=== PATIENT | female | born 1965 | race African-American/Black ===

== ENCOUNTER 2016-11-20 16:58 | Emergency (ER) | payer SELFPAY ==
[2016-11-20 16:58] VITALS: BP 152/78
--- NOTE | 2016-11-20 17:59 | EKG ---
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
[2016-11-20 18:26] LABS: BASO % 0 % (0-3); EOS # 0.1 x10^3/uL (0.0-0.7); EOS % 1 % (0-3); HEMATOCRIT 38.8 % (36.0-47.0); HEMOGLOBIN 12.7 g/dL (12.0-15.5); LYMPH % 53 % (24-48); MEAN CORPUSCULAR HEMOGLOBIN 28 pg (25-35); MEAN CORPUSCULAR HGB CONC 33 g/dL (31-37); MEAN CORPUSCULAR VOLUME 85 fL (79-100); MONO # 0.8 x10^3/uL (0.0-1.1); MONO % 10 % (0-9); NEUT # 2.7 x10^3uL (1.8-7.7); NEUT % 36 % (31-73); PLATELET COUNT 233 x10^3/uL (140-400); RED BLOOD COUNT 4.58 x10^6/uL (3.50-5.40); RED CELL DISTRIBUTION WIDTH 14.5 % (11.5-14.5); WHITE BLOOD COUNT 7.5 x10^3/uL (4.0-11.0)
[2016-11-20 18:38] LABS: ALBUMIN 3.6 g/dL (3.4-5.0); ALBUMIN/GLOBULIN RATIO 0.9 (1.0-1.7); CALCIUM 9.4 mg/dL (8.5-10.1); POTASSIUM 3.6 mmol/L (3.5-5.1); TOTAL BILIRUBIN 0.2 mg/dL (0.2-1.0); TOTAL PROTEIN 7.7 g/dL (6.4-8.2)
--- NOTE | 2016-11-21 03:41 | ED.ADGEN ---
Past History Past Medical History: Other Past Surgical History: Hysterectomy, Other Alcohol Use: None Drug Use: None Adult General Chief Complaint Chief Complaint Chest pain HPI HPI Patient is a 50-year-old -Macedonian female presents with intermittent chest pain 2 days. Patient states chest pain is left-sided and nonradiating. It is not worse with palpation, exertion, or movement. Pressure typically lasts 5-10 minutes and resolves without treatment. It is not associated with nausea vomiting or sweats. Patient denies abdominal pain, tenderness, leg pain or swelling. No history of DVT PE. No history of hypertension, dyslipidemia and diabetes or CAD. Patient states symptoms may be stress related due to increased amount of stress levels while at work and family related that home. No family history of early CAD under the age of 50. Patient is a nonsmoker. Review of Systems Review of Systems Review symptoms as per history of present illness. All other review symptoms are negative. Allergies Allergies Allergies Coded Allergies Type Severity Reaction Last Updated Verified naproxen Allergy Unknown GI UPSET 11/20/16 Yes Physical Exam Physical Exam Constitutional: Well developed, well nourished, no acute distress, non-toxic appearance. HENT: Normocephalic, atraumatic, bilateral external ears normal, oropharynx moist, no oral exudates, nose normal. Eyes: PERRLA, EOMI, conjunctiva normal. Neck: Normal range of motion, no tenderness. Cardiovascular:Heart rate regular rhythm, no murmur. Lungs & Thorax: Bilateral breath sounds clear to auscultation. Abdomen: Bowel sounds normal, soft, no tenderness. Skin: Warm, dry. Back: No tenderness. Extremities: No tenderness, no cyanosis, no clubbing, ROM intact, no edema. Neurologic: Alert and oriented X 3, normal motor function, normal sensory function, no focal deficits noted. Psychologic: Affect, anxious. Current Patient Data Vital Signs Vital Signs Date Time Temp Pulse Resp B/P (MAP) Pulse Ox O2 Delivery O2 Flow Rate FiO2 11/20/16 16:58 98.1 66 18 99 Room Air Lab Results Laboratory Tests Test 11/20/16 17:35 White Blood Count 7.5 x10^3/uL (4.0-11.0) Red Blood Count 4.58 x10^6/uL (3.50-5.40) Hemoglobin 12.7 g/dL (12.0-15.5) Hematocrit 38.8 % (36.0-47.0) Mean Corpuscular Volume 85 fL (79-100) Mean Corpuscular Hemoglobin 28 pg (25-35) Mean Corpuscular Hemoglobin Concent 33 g/dL (31-37) Red Cell Distribution Width 14.5 % (11.5-14.5) Platelet Count 233 x10^3/uL (140-400) Neutrophils (%) (Auto) 36 % (31-73) Lymphocytes (%) (Auto) 53 % (24-48) H Monocytes (%) (Auto) 10 % (0-9) H Eosinophils (%) (Auto) 1 % (0-3) Basophils (%) (Auto) 0 % (0-3) Neutrophils # (Auto) 2.7 x10^3uL (1.8-7.7) Lymphocytes # (Auto) 4.0 x10^3/uL (1.0-4.8) Monocytes # (Auto) 0.8 x10^3/uL (0.0-1.1) Eosinophils # (Auto) 0.1 x10^3/uL (0.0-0.7) Basophils # (Auto) 0.0 x10^3/uL (0.0-0.2) Sodium Level 141 mmol/L (136-145) Potassium Level 3.6 mmol/L (3.5-5.1) Chloride Level 105 mmol/L (98-107) Carbon Dioxide Level 30 mmol/L (21-32) Anion Gap 6 (6-14) Blood Urea Nitrogen 12 mg/dL (7-20) Creatinine 1.0 mg/dL (0.6-1.0) Estimated GFR (Cockcroft-Gault) 58.0 BUN/Creatinine Ratio 12 (6-20) Glucose Level 91 mg/dL (70-99) Calcium Level 9.4 mg/dL (8.5-10.1) Total Bilirubin 0.2 mg/dL (0.2-1.0) Aspartate Amino Transferase (AST) 17 U/L (15-37) Alanine Aminotransferase (ALT) 19 U/L (14-59) Alkaline Phosphatase 91 U/L (46-116) Troponin I Quantitative < 0.017 ng/mL (0-0.055) Total Protein 7.7 g/dL (6.4-8.2) Albumin 3.6 g/dL (3.4-5.0) Albumin/Globulin Ratio 0.9 (1.0-1.7) L EKG EKG [EKG: Normal sinus rhythm, no acute ST-T wave changes on ED review.] Radiology/Procedures Radiology/Procedures [Chest x-ray: No acute cardiopulmonary disease on ED review.] Course & Med Decision Making Course & Med Decision Making Pertinent Labs and Imaging studies reviewed. (See chart for details) [Patient with atypical nonreproducible chest pain. Chest x-ray, EKG, lab work are unremarkable despite ongoing symptoms for 2 days.. Patient relates symptoms to increased levels of strep work at home. Symptoms improved while in the ED. Recommend close PCP follow-up with further outpatient cardiac testing as needed. Return precautions reviewed. Patient voices understanding treatment discharge instructions prior to departure.. ] Final Impression Final Impression [1. Chest pain- non specific] Problems: Dragon Disclaimer Dragon Disclaimer This electronic medical record was generated, in whole or in part, using a voice recognition dictation system. MURIEL GRAVES DO Nov 21, 2016 03:41
--- NOTE | 2016-11-21 09:47 | RAD ---
Portable chest, 11/20/2016: History: Chest tightness The heart size and pulmonary vascularity are normal. No pulmonary infiltrates are seen. There is no evidence of pleural fluid. IMPRESSION: No acute cardiopulmonary abnormality is detected.
== END 2016-11-20 19:58 | disposition home or self-care (01) ==
LOC: ER 16:58
DX: R07.89 Other chest pain (principal); Z88.6 Allergy status to analgesic agent
CPT/HCPCS: 36415; 71010; 80053; 84484; 85027; 93005; 99285-25

== ENCOUNTER → 2017-04-24 | Outpatient (CLI) | payer OTHER ==
--- NOTE | 2017-04-24 09:41 | RAD ---
CT study of the abdomen and pelvis without contrast Clinical indications: Left flank pain for 3 months. Technique: Noncontrast helical CT scanning of the abdomen and pelvis was performed. Without contrast, the sensitivity to detect organ pathology and GI tract pathology is decreased. PQRS Compliance Statement: One or more of the following individualized dose reduction techniques were utilized for this examination: 1. Automated exposure control 2. Adjustment of the mA and/or kV according to patient size 3. Use of iterative reconstruction technique Comparison: None available. Findings: There is a 3.8 cm hypodense lesion of the dome of the posterior segment of the right lobe liver. This measures 32 Hounsfield units and therefore is consistent with a solid lesion. There is a 1.4 cm hypodense nodule of the anterior aspect of the lateral segment of the left lobe of the liver which demonstrates Hounsfield unit measurements of 10 consistent with a cyst. There is a 10 mm hypodense nodule within the posterior aspect the posterior segment of the right lobe of the liver which measures 5 Hounsfield units consistent with a small cyst. The spleen is not enlarged. The pancreas is homogeneous in appearance on this noncontrast study. The gallbladder is normal and no extra hepatic biliary ductal dilatation is seen. No adrenal mass is seen. No hydronephrosis or hydroureter or urinary tract stone is evident on either side. No renal mass is seen on either side on this noncontrast study. Urinary bladder wall is smooth. No focal aneurysmal dilatation of the abdominal aorta is seen. No enlarged abdominal or pelvic lymphadenopathy is seen. The uterus is surgically absent. No bowel obstruction is evident. The appendix is normal. No free air or free fluid or mesenteric inflammatory changes seen. No lung base consolidation is seen. No osteolytic process is seen. IMPRESSION: No acute amount in the abdomen or pelvis is evident. Specifically, no urinary tract stone or hydronephrosis or hydroureter is seen. There is mild fecal retention throughout the colon and rectosigmoid region. There is a 3.8 cm hypodense lesion of the right lobe of the liver. This is solid. This most likely represents a hemangioma if there is no history of primary malignancy or cirrhosis/hepatitis. This may be further evaluated with multiphase CT study of the abdomen with contrast.
== END | disposition home or self-care (01) ==
LOC: CT 07:44
PROVIDERS: ATTEND Family Medicine
DX: R10.9 Unspecified abdominal pain (principal); K76.9 Liver disease, unspecified; Z90.710 Acquired absence of both cervix and uterus
CPT/HCPCS: 74176

== ENCOUNTER → 2017-08-14 | Outpatient (CLI) | payer OTHER ==
--- NOTE | 2017-09-05 11:04 | RAD ---
DATE: 08/14/2017 EXAM: DIGITAL SCREEN BILAT W/CAD HISTORY: Routine screening COMPARISON: None available This study was interpreted with the benefit of Computerized Aided Detection (CAD). The breast parenchyma shows scattered fibroglandular densities. Breast parenchyma level B. FINDINGS: A breast biopsy marker is present medially in the right breast. A possible small nodule is noted posteriorly medially in the left breast on the cc view. No correlate is evident on the oblique view. This may be a summation shadow. No other suspicious breast densities are seen. A benign type calcification is present anteriorly in the left breast. No suspicious microcalcifications are seen. IMPRESSION: Possible left breast nodule as described above. Diagnostic left mammograms to include a spot compression cc view is suggested for further evaluation. BI-RADS CATEGORY: 0 INCOMPLETE: NEEDS ADDITIONAL IMAGING EVALUATION AND/OR PRIOR MAMMOGRAMS FOR COMPARISON. RECOMMENDED FOLLOW-UP: ADD ADDITIONAL IMAGING PQRS compliance statement: Patient information was entered into a reminder system with a target due date for the next mammogram. Mammography is a sensitive method for finding small breast cancers, but it does not detect them all and is not a substitute for careful clinical examination. A negative mammogram does not negate a clinically suspicious finding and should not result in delay in biopsying a clinically suspicious abnormality. "Our facility is accredited by the [employer] Mammography Program."
== END | disposition home or self-care (01) ==
LOC: MAMMO 07:35
PROVIDERS: ATTEND Nurse Practitioner Family
DX: Z12.31 Encounter for screening mammogram for malignant neoplasm of breast (principal)
CPT/HCPCS: 77067

== ENCOUNTER 2017-10-26 13:35 | Emergency (ER) | payer OTHER ==
[2017-10-26 13:42] VITALS: BP 128/81
--- NOTE | 2017-10-26 13:58 | EKG ---
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
[2017-10-26] MEDS ORDERED: KETOROLAC 60 MG/2 ML VIAL. IM ONE (14:15)
--- NOTE | 2017-10-26 14:30 | RAD ---
EXAM: Left shoulder, 3 views. HISTORY: Pain. COMPARISON: None. FINDINGS: 3 views of the left shoulder obtained. There is no fracture, dislocation or subluxation. IMPRESSION: No acute osseous finding. Electronically signed by: Brandy Aj MD (10/26/2017 2:27 PM) [facility]
[2017-10-26] MEDS ORDERED: TRAM-48 PO (14:57)
[2017-10-26] MEDS ORDERED: CYCL-331 PO (14:57)
[2017-10-26] MEDS ORDERED: METH4TAB2 PO (14:57)
--- NOTE | 2017-10-26 14:58 | PHYS DOC ---
Past History Past Medical History: Other Past Surgical History: Hysterectomy, Other Smoking: Cigarettes Alcohol Use: None Drug Use: None Adult General Chief Complaint Chief Complaint: shoulder pain HPI HPI 52-year-old right-handed female patient of left shoulder pain intermittently for the last 3 weeks that usually happens several times a day and lasts for several hours as a sharp pain that getting worse with movement of upper extremity and radiated to left upper chest and fingers. Patient complaining of intermittent episodes of hand numbness with episodes of the pain. She states she has been medicated abduction of her left shoulder and had the same pain for rotator cuff surgery 1 year ago in [place]. She denies heavy physical activity or injury to her shoulder, chest pain, shortness of breath, focal weakness. Patient rated her pain 5/10 and states the pain did not get better with [id number] pain medication. Review of Systems Review of Systems Constitutional: Denies fever or chills [] Eyes: Denies change in visual acuity, redness, or eye pain [] HENT: Denies nasal congestion or sore throat [] Respiratory: Denies cough or shortness of breath [] Cardiovascular: No additional information not addressed in HPI [] GI: Denies abdominal pain, nausea, vomiting, bloody stools or diarrhea [] : Denies dysuria or hematuria [] Musculoskeletal: Denies back pain, reports joint pain [] Integument: Denies rash or skin lesions [] Neurologic: Denies headache, focal weakness reports sensory changes [] Endocrine: Denies polyuria or polydipsia [] All other systems were reviewed and found to be within normal limits, except as documented in this note. Current Medications Current Medications Current Medications Medications (Trade) Dose Ordered Sig/Rita Start Time Stop Time Status Last Admin Dose Admin Ketorolac Tromethamine (Toradol) 60 mg 1X ONCE 10/26/17 14:15 10/26/17 14:16 DC 10/26/17 14:24 60 MG Allergies Allergies Allergies Coded Allergies Type Severity Reaction Last Updated Verified naproxen Allergy Unknown GI UPSET 11/20/16 Yes Physical Exam Physical Exam Constitutional: Well developed, well nourished, mild distress, non-toxic appearance. [] HENT: Normocephalic, atraumatic Eyes: PERRLA, EOMI, conjunctiva normal, no discharge. [] Neck: Normal range of motion, no tenderness, supple, no stridor. [] Cardiovascular:Heart rate regular rhythm, no murmur [] Lungs & Thorax: Bilateral breath sounds clear to auscultation [] Extremities: Left shoulder without deformity or edema or tenderness, limited range of abduction, no neurovascular deficit, equal pulses bilaterally Neurologic: Alert and oriented X 3, normal motor function, normal sensory function, no focal deficits noted. [] Psychologic: Affect normal, judgement normal, mood normal. [] Current Patient Data Vital Signs Vital Signs Date Time Temp Pulse Resp B/P (MAP) Pulse Ox O2 Delivery O2 Flow Rate FiO2 10/26/17 13:42 98.2 63 18 99 Room Air EKG EKG [] Radiology/Procedures Radiology/Procedures [][address] [address] IMAGING REPORT Signed PATIENT: JEFFERY ALFONSO ACCOUNT: [id number] : 1965 LOCATION: ER AGE: 52 SEX: F EXAM STATUS: REG ER ORD. PHYSICIAN: ECHO CONWAY MD REASON: pain without injury PROCEDURE: SHOULDER 2+V LEFT EXAM: Left shoulder, 3 views. HISTORY: Pain. COMPARISON: None. FINDINGS: 3 views of the left shoulder obtained. There is no fracture, dislocation or subluxation. IMPRESSION: No acute osseous finding. Electronically signed by: Brandy Estes MD (10/26/2017 2:27 PM) [facility] DICTATED AND SIGNED BY: BRANDY ESTES MD DATE: 10/26/17 1427 CC: ECHO CONWAY MD; KORY CORONA MD ~ Course & Med Decision Making Course & Med Decision Making Pertinent Imaging studies reviewed. (See chart for details) discharge: I've spoken with the patient and/or caregivers. I've explained the patient's condition, diagnosis and treatment plan based on information available to me at this time. I've answered the patient's and/or caregivers questions and addressed any concerns. The patient and/or caregivers have a good understanding the patient's diagnosis, condition and treatment plan as can be expected at this point. Vital signs have been stabilized. The patient's condition is stable for discharge from the emergency department. The patient will pursue further outpatient evaluation with her primary care provider or other designated consulting physician as outlined in the discharge instructions. Patient and/or caregivers are agreeable to this plan of care and follow-up instructions have been explained in detail. The patient and/or caregivers have received these instructions in written format and expressed understanding of these discharge instructions. The patient and her caregivers are aware that if any significant change in condition or worsening of symptoms should prompt him to immediately return to this of the closest emergency department. If an emergent department is not readily available I would encourage him to call 911. [] Dragon Disclaimer Dragon Disclaimer This electronic medical record was generated, in whole or in part, using a voice recognition dictation system. Departure Departure: Impression: Primary Impression: Rotator cuff disorder Additional Impressions: Tobacco abuse Tobacco abuse counseling Disposition: HOME, SELF-CARE Referrals: KORY CORONA MD (PCP) Patient Instructions: Rotator Cuff Injury, Smoking Cessation, Tips For Success Additional Instructions: Follow-up with Dr. Lazaro munitions worker orthopedic physician at [phone] if not getting better Apply ice on the affected area Return to emergency room if not getting better Scripts Tramadol Hcl (ULTRAM) 50 Mg Tablet 50 MG PO PRN Q6HRS PRN for PAIN, #20 TAB Prov: ECHO OCNWAY MD 10/26/17 Cyclobenzaprine Hcl (CYCLOBENZAPRINE HCL) 10 Mg Tablet 1 TAB PO TID, #30 TAB Prov: ECHO CONWAY MD 10/26/17 Methylprednisolone (MEDROL) 4 Mg Tab.ds.pk 1 PKG PO UD, #1 PKG Prov: ECHO CONWAY MD 10/26/17 Problem Qualifiers ECHO CONWAY MD Oct 26, 2017 14:57
== END 2017-10-27 15:15 | disposition home or self-care (01) ==
LOC: ER 13:35
DX: M25.812 Other specified joint disorders, left shoulder (principal); M25.512 Pain in left shoulder; F17.210 Nicotine dependence, cigarettes, uncomplicated; Z71.6 Tobacco abuse counseling; Z88.6 Allergy status to analgesic agent
CPT/HCPCS: 73030; 93005; 96372; 99284; J1885

== ENCOUNTER 2018-06-04 17:52 | Emergency (ER) | payer OTHER ==
[~2018-06-04] VITALS: Ht 165.1 cm; Wt 84.8 kg
[~2018-06-04 17:52] MED LIST: CYCL-331 PO; METH4TAB2 PO; TRAM-48 PO
[2018-06-04] MEDS ORDERED: IV NORMAL SALINE 1,000ML 1,000 ML IV ONE (18:30)
[2018-06-04] MEDS ORDERED: DEXAMETHASONE SOD PHOS 10 MG/ML VIAL IV ONE (18:30)
--- NOTE | 2018-06-04 18:38 | PHYS DOC ---
Past History Past Medical History: Anxiety, Hyperthyroid Additional Past Medical Histor: Vitamin D deficiency Past Surgical History: Hysterectomy Additional Past Surgical Histo: Left shoulder rotator cuff repair Additional Smoking Information: Nonsmoker Alcohol Use: None Drug Use: None Adult General Chief Complaint Chief Complaint: NEURO SYMPTOMS/DEFICITS HPI HPI 53 y/o female presents with report of waking this AM at 0630 with "numbness" to right face which has been constant all day. Denies known trauma. Reports last known well at 2330 last night when patient went to bed. Denies other complaints. Denies weakness. Denies pain. Reports has been recently diagnosed with pharyngitis and is currently taking antibiotics. Denies headache or toothache. Reports she does have some nasal congestion. Denies known trauma. Denies rash. Review of Systems Review of Systems Constitutional: Denies fever or chills [] Eyes: Denies change in visual acuity, redness, or eye pain [] HENT: Reports nasal congestion and improving sore throat [] Respiratory: Denies cough or shortness of breath [] Cardiovascular: Denies chest pain or palpitations GI: Denies abdominal pain, nausea, vomiting, or diarrhea [] : Denies dysuria or hematuria [] Musculoskeletal: Denies back pain or joint pain [] Integument: Denies rash or skin lesions [] Neurologic: Denies headache or focal weakness; reports right facial numbness Complete systems were reviewed and found to be within normal limits, except as documented in this note. Allergies Allergies Allergies Coded Allergies Type Severity Reaction Last Updated Verified naproxen Allergy Unknown GI UPSET 11/20/16 Yes Physical Exam Physical Exam Constitutional: Well developed, well nourished, no acute distress, non-toxic appearance. [] HENT: Normocephalic, atraumatic, bilateral TMs normal, oropharynx moist, no oral exudates, nose normal. Several dental extractions noted, no focal infectious process noted, mild tenderness to right upper 1st molar Eyes: PERRL, EOMI, conjunctiva normal, no discharge. [] Neck: Normal range of motion, no tenderness, supple, no stridor. [] Cardiovascular: Heart rate regular rhythm, no murmur [] Lungs & Thorax: Bilateral breath sounds clear to auscultation [] Abdomen: Soft, no tenderness, no masses, no pulsatile masses. [] Skin: Warm, dry, no erythema, no rash. [] Extremities: No tenderness, no cyanosis, no clubbing, ROM intact, no edema. [] Neurologic: Alert and oriented X 3, normal motor function, decreased sensation to right cheek in comparison to left, cerebellar function intact Psychologic: Affect normal, judgement normal, mood normal. [] Current Patient Data Vital Signs Vital Signs Date Time Temp Pulse Resp B/P (MAP) Pulse Ox O2 Delivery O2 Flow Rate FiO2 06/04/18 18:04 98.1 70 18 10 Room Air EKG EKG @1855 NSR at 63bpm, NO ST elevation, Radiology/Procedures Radiology/Procedures PROCEDURE: CT MAXILLOFACIAL W/CONTRAST CT brain without contrast, maxillofacial CT without contrast HISTORY: Migraine, right-sided facial numbness CT brain CT scan of brain was done without contrast. Sinuses are clear. There is no skull fracture. There is no intracranial hemorrhage or subdural hematoma. Ventricles are normal in size. There is no mass or shift of the midline. IMPRESSION: 1. No intracranial hemorrhage or acute finding noted. Maxillofacial CT Axial CT images were obtained to the facial bones and sinuses. Mandible is intact. Sinuses are clear throughout. A facial fracture is not identified. Parotid and submandibular glands are unremarkable. There is no adenopathy in the upper neck. There is no retropharyngeal soft tissue swelling. There is degenerative disc disease with spurring at C5-6. Orbits appear unremarkable. Nasal septum is in the midline. Ostiomeatal meatal complex is clear. IMPRESSION: 1. Negative CT of the facial bones and sinuses. Course & Med Decision Making Course & Med Decision Making Pertinent Labs and Imaging studies reviewed. (See chart for details) Patient presents with report of right facial numbness upon waking this AM at 0630. Last known normal was 2330 the night before. Patient otherwise neurologically intact. NIHSS 1. CT head without acute process. CT maxillofacial obtained due to concern for possible compressive etiology such as sinusitis or dental abscess. CTs without acute process. Labs obtained and posted to chart. Symptomatic steroid provided without improvement. EKG stable. Discussed case with Dr. Carreno (neurology) who is in agreement with atypical nature of case and is comfortable with close outpatient follow-up in the office tomorrow. Referral information provided to patient. Patient stable for discharge with outpatient follow-up with PCP. Discussed findings and plan with patient, who acknowledges understanding and agreement. Dragon Disclaimer Dragon Disclaimer This electronic medical record was generated, in whole or in part, using a voice recognition dictation system. Departure Departure: Impression: Primary Impression: Right facial numbness Disposition: 01 HOME, SELF-CARE Condition: STABLE Referrals: KORY CORONA MD (PCP) HEMALATHA CARRENO MD Patient Instructions: Paresthesia, [id number] NIHSS - ED NIH Stroke Scale: NIH Stroke Scale Response (Comments) Value Level of Consciousness: 0 Alert/Responsive 0 LOC Questions: 0 Answers both correctly 0 LOC Commands: 0 Performs both tasks 0 Best Gaze: 0 Normal 0 Visual: 0 No visual loss 0 Facial Palsy: 0 Normal, symmetrical 0 Motor - Left Arm 0 No drift 0 Motor - Right Arm 0 No drift 0 Motor - Left Leg 0 No drift 0 Motor: Right Leg 0 No drift 0 Limb Ataxia: 0 Absent 0 Sensory: 1 Mid to moderate loss 1 Best Language: 0 Normal 0 Dysathria: 0 Normal 0 Extinction and Inattention: 0 Normal 0 Total 1 ANTONIA GARY DO Jun 04, 2018 18:38
[2018-06-04] MEDS ORDERED: IOHEXOL 300 MG/ML 75 ML VIAL. IV ONE (18:45)
[2018-06-04 18:57] LABS: BASO # 0.1 x10^3/uL (0.0-0.2); BASO % 1 % (0-3); EOS # 0.1 x10^3/uL (0.0-0.7); EOS % 2 % (0-3); HEMATOCRIT 39.7 % (36.0-47.0); LYMPH # 3.4 x10^3/uL (1.0-4.8); LYMPH % 55 % (24-48); MEAN CORPUSCULAR HEMOGLOBIN 28 pg (25-35); MEAN CORPUSCULAR HGB CONC 33 g/dL (31-37); MEAN CORPUSCULAR VOLUME 86 fL (79-100); MONO # 0.6 x10^3/uL (0.0-1.1); MONO % 9 % (0-9); NEUT # 2.1 x10^3uL (1.8-7.7); NEUT % 33 % (31-73); PLATELET COUNT 235 x10^3/uL (140-400); RED BLOOD COUNT 4.64 x10^6/uL (3.50-5.40); RED CELL DISTRIBUTION WIDTH 14.4 % (11.5-14.5); WHITE BLOOD COUNT 6.3 x10^3/uL (4.0-11.0)
[2018-06-04 19:01] LABS: BILIRUBIN,URINE NEG (NEG); CLARITY,URINE CLEAR; COLOR,URINE STRAW; GLUCOSE,URINE NEG (NEG)
[2018-06-04 19:02] LABS: BACTERIA,URINE FEW /HPF (0-FEW); NITRITE,URINE NEG (NEG); RBC,URINE 0 /HPF (0-2); SQUAMOUS EPITHELIAL CELL,UR OCC /LPF; UROBILINOGEN,URINE 0.2 mg/dL (0.2 mg/dL); WBC,URINE RARE /HPF (0-4)
[2018-06-04 19:31] LABS: ALBUMIN 3.8 g/dL (3.4-5.0); ALBUMIN/GLOBULIN RATIO 0.9 (1.0-1.7); CALCIUM 9.8 mg/dL (8.5-10.1); CREATININE 0.9 mg/dL (0.6-1.0); GFR 78.7; MAGNESIUM 2.2 mg/dL (1.8-2.4); POTASSIUM 4.1 mmol/L (3.5-5.1); TOTAL BILIRUBIN 0.2 mg/dL (0.2-1.0); TOTAL PROTEIN 7.9 g/dL (6.4-8.2)
--- NOTE | 2018-06-04 19:42 | RAD ---
CT brain without contrast, maxillofacial CT without contrast HISTORY: Migraine, right-sided facial numbness CT brain CT scan of brain was done without contrast. Sinuses are clear. There is no skull fracture. There is no intracranial hemorrhage or subdural hematoma. Ventricles are normal in size. There is no mass or shift of the midline. IMPRESSION: 1. No intracranial hemorrhage or acute finding noted. Maxillofacial CT Axial CT images were obtained to the facial bones and sinuses. Mandible is intact. Sinuses are clear throughout. A facial fracture is not identified. Parotid and submandibular glands are unremarkable. There is no adenopathy in the upper neck. There is no retropharyngeal soft tissue swelling. There is degenerative disc disease with spurring at C5-6. Orbits appear unremarkable. Nasal septum is in the midline. Ostiomeatal meatal complex is clear. IMPRESSION: 1. Negative CT of the facial bones and sinuses. PQRS Compliance Statement: One or more of the following individualized dose reduction techniques were utilized for this examination: 1. Automated exposure control 2. Adjustment of the mA and/or kV according to patient size 3. Use of iterative reconstruction technique Electronically signed by: Chidi Hernandez MD (06/04/2018 7:37 PM) [facility]
[2018-06-04 20:13] VITALS: BP 129/67
[2018-06-04] MEDS ORDERED: ASPIRIN 325 MG TABLET PO ONE (20:15)
--- NOTE | 2018-06-05 01:11 | EKG ---
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
== END 2018-06-04 20:34 | disposition home or self-care (01) ==
LOC: ER 17:52
DX: R20.0 Anesthesia of skin (principal); R09.81 Nasal congestion; F41.9 Anxiety disorder, unspecified; E03.9 Hypothyroidism, unspecified; Z88.6 Allergy status to analgesic agent
CPT/HCPCS: 36415; 70450; 70487; 80053; 81001; 82553; 83735; 84484; 85025; 85610; 85730; 93005; 96374; 99284; J1100; Q9967; J7030